=== PATIENT | female | born 1960 | race Hispanic/Latino ===

== ENCOUNTER 2018-10-22 16:58 | Inpatient (IN) | payer OTHER ==
[2018-10-22] MEDS ORDERED: PROMETHAZINE 25 MG/ML VIAL ONE ×2 (17:36→17:51)
[2018-10-22] MEDS ORDERED: ONDANSETRON 4 MG/2 ML VIAL ONE ×2 (17:37→18:54)
[2018-10-22] MEDS ORDERED: NA CHLORIDE 0.9% 1,000 ML ONE ×3 (17:37→20:06)
[2018-10-22] MEDS ORDERED: FENTANYL CITR 100 MCG/2 ML ONE ×2 (17:47→21:03)
[2018-10-22] MEDS ORDERED: PANTOPRAZOLE 40 MG INJ ONE (17:48)
[2018-10-22] MEDS: PANTOPRAZOLE INJ 80 MG in NA CHLORIDE 0.9% 250 ML IV SCH (18:00)
[2018-10-22 18:19] LABS: Absolute Lymphocytes (CBC) 2.4 K/uL (0.7-4.9); Absolute Monocytes 0.5 K/uL (0.1-1.3); Absolute Neutrophil 6.9 K/uL (1.8-8.0); Basophils % 0.7 % (0-1.3); Eosinophils % 0.8 % (0-4.4); Hematocrit 42.7 % (36.0-45.0); Lymphocytes % 24.3 % (15.3-44.8); Monocytes % 5.2 % (3.3-12.3); Protime INR 1.04; RBC Red Blood Cell Count 4.44 M/uL (3.86-4.86)
[2018-10-22 18:45] LABS: ALT/SGPT 224 U/L (12-78); Albumin 3.9 g/dL (3.4-5.0); Alkaline Phosphatase 198 U/L (45-117); BUN Blood Urea Nitrogen 22 mg/dL (7-18); Bicarbonate 28 mmol/L (21-32); Bilirubin Direct 0.9 mg/dL (0-0.2); Bilirubin Total 1.2 mg/dL (0.2-1.0); Glucose Level 158 mg/dL (74-106); NT PRO-BNP 376 pg/mL (<125); Protein, Total 7.2 g/dL (6.4-8.2); Sodium Level 146 mmol/L (136-145); Troponin (Emerg Dept Use Only) < 0.02 ng/mL (0.0-0.045)
[2018-10-22 18:47] LABS: AST/SGOT 500 U/L (15-37)
--- NOTE | 2018-10-22 18:53 | RAD REPORT ---
EXAM DESCRIPTION: RAD - Chest Single View - 10/22/2018 6:29 pm CLINICAL HISTORY: Upper abdominal pain COMPARISON: None. TECHNIQUE: AP portable chest image was obtained 1824 hours . FINDINGS: Lungs are clear. Lung markings are not outside of normal range for a slightly shallow insp iration exam. Heart and vasculature are normal. No measurable pleural effusion and no pneumothorax. N o acute bony abnormality seen. No acute aortic findings suspected. No free air under the diaphragm. IMPRESSION: No acute cardiopulmonary process.
[2018-10-22 19:37] LABS: Lipase > 30000 U/L (73-393)
--- NOTE | 2018-10-22 20:02 | RAD REPORT ---
EXAM DESCRIPTION: CT - Chest Abdomen Pelvis W Cont - 10/22/2018 7:46 pm CLINICAL HISTORY: Chest pain, abdominal pain, diabetes, prior cholecystectomy COMPARISON: Gallbladder ultrasound same date TECHNIQUE: Following dynamic enhancement using 100 milliliters nonionic IV contrast, axial imaging o f the chest, abdomen and pelvis was performed. Biphasic technique was utilized through the abdomen. Oral contrast was administered. All CT scans are performed using dose optimization technique as appropriate and may include automated exposure control or mA/KV adjustment according to patient size. FINDINGS: Lungs are clear of mass and infiltrate. No pleural effusion, pleural thickening or pneumot horax. No significant aortic or pulmonary arterial tree finding. Mediastinal and hilar regions show n o mass or abnormal lymphadenopathy. No chest wall mass or axillary lymphadenopathy. Liver shows a mild diffuse fatty infiltration pattern. No focal liver lesion. No splenomegaly or foca l splenic finding. Gallbladder is absent. Biliary tree is prominent but not outside of normal range f or a post cholecystectomy patient. Duct stones can be occult on CT imaging. Pancreas is abnormal. No solid mass of the pancreas identified. There is moderate severity peripancreatic fluid and inflammato ry stranding. This extends along each anterior pararenal fascia. No pseudocyst or abscess. Symmetric renal function present with no acute renal finding. No adrenal abnormality. Urinary bladder is normal. Uterus and ovaries show no suspicious findings. No gastric abnormality. There is minimal secondary involvement of the duodenum by the pancreatitis ch anges. Remainder of the small bowel and colon show no suspicious findings. No acute or destructive bony process. No significant vascular findings. IMPRESSION: Moderate severity acute pancreatitis. Status post cholecystectomy. Biliary tree is dilated but not outside of normal range for a post julissa cystectomy patient. Duct stones can be occult. Mild fatty infiltration pattern of the liver.
--- NOTE | 2018-10-22 20:04 | RAD REPORT ---
EXAM DESCRIPTION: US - Abdomen Exam Limited - 10/22/2018 7:31 pm CLINICAL HISTORY: Abdominal pain COMPARISON: None. FINDINGS: Gallbladder is absent. No mass or abnormal fluid collection in the gallbladder fossa. Comm on bile duct is 8 mm which is not outside of normal for a post cholecystectomy patient. Doppler evalu ation shows normal blood flow direction and velocity in the portal vein. No portal vein thrombus. No common duct stone seen. IMPRESSION: Gallbladder is absent. No abnormal biliary tree finding.
[2018-10-22 20:17] LABS: Urine Blood NEGATIVE (NEG); Urine Glucose NEGATIVE (NEG); Urine Protein NEGATIVE (NEG)
--- NOTE | 2018-10-22 20:36 | EDPHYS ---
Physician Documentation [facility] Name: Kristina Mendoza Age: 58 yrs Sex: Female : 1960 Arrival Date: 10/22/2018 Time: 17:02 Bed 19 Private MD: None, None ED Physician Aurelio Fernandez HPI: 10/22 17:31 This 58 yrs old Female presents to ER via Ambulatory with complaints of cp Abdominal Pain. 17:31 The patient presents with abdominal pain in the upper abdomen. Onset: The cp symptoms/episode began/occurred today. 17:31 Associated signs and symptoms: Pertinent positives: nausea and vomiting, vomiting cp blood, Pertinent negatives: blood in stools, constipation, diarrhea, fever. The symptoms are described as constant. Historical: - Allergies: 17:16 No Known Allergies; hb - Home Meds: 17:16 metformin 500 mg Oral tab 1 tab 2 times per day [Active]; lisinopril 20 mg Oral tab 1 hb tab once daily [Active]; - PMHx: 17:16 Diabetes - NIDDM; Hypertension; hb - PSHx: 17:43 Cholecystectomy; iw - Immunization history:: Adult Immunizations up to date. - Social history:: Smoking status: Patient/guardian denies using tobacco. - Ebola Screening: : No symptoms or risks identified at this time. ROS: 17:35 Constitutional: Positive for poor PO intake, Negative for body aches, chills, fever. cp 17:35 Eyes: Negative for injury, pain, redness, and discharge. cp 17:35 ENT: Negative for drainage from ear(s), ear pain, sore throat, difficulty swallowing, difficulty handling secretions. 17:35 Cardiovascular: Positive for chest pain, Negative for edema. 17:35 Respiratory: Negative for cough, shortness of breath, wheezing. 17:35 Abdomen/GI: Positive for abdominal pain, nausea and vomiting, hematemesis, Negative for diarrhea, constipation, black/tarry stool, rectal bleeding. 17:35 Back: Negative for pain at rest, pain with movement. 17:35 : Negative for urinary symptoms. 17:35 Skin: Negative for cellulitis, rash. 17:35 Neuro: Negative for altered mental status, headache, weakness. 17:35 All other systems are negative. Exam: 17:38 Head/Face: Normocephalic, atraumatic. cp 17:38 Constitutional: The patient appears alert, awake, non-diaphoretic, well developed, well nourished, in obvious distress, obviously ill, in obvious pain, uncomfortable. 17:38 Eyes: Periorbital structures: appear normal, Pupils: equal, round, and reactive to cp light and accomodation, Conjunctiva: normal, no exudate, no injection, Sclera: no appreciated abnormality, Lids and lashes: appear normal, bilaterally. 17:38 ENT: External ear(s): are unremarkable, Nose: is normal, Mouth: is normal, Posterior pharynx: is normal, airway is patent, no erythema, no exudate. 17:38 Neck: ROM/movement: is normal, is supple, without pain, no range of motions limitations, no meningismus, no nuchal rigidity. 17:38 Chest/axilla: Inspection: normal, Palpation: is normal, no crepitus, no tenderness. 17:38 Cardiovascular: Rate: normal, Rhythm: regular, Edema: is not appreciated, JVD: is not appreciated. 17:38 Respiratory: the patient does not display signs of respiratory distress, Respirations: normal, no use of accessory muscles, no retractions, no splinting, no tachypnea, labored breathing, is not present, Breath sounds: are clear throughout, no decreased breath sounds, no stridor, no wheezing. 17:38 Abdomen/GI: Inspection: distension, is not seen, scar(s), are noted in the , Bowel sounds: active, all quadrants, Palpation: soft, in all quadrants, severe abdominal tenderness, in the epigastric area. 17:38 Back: pain, is absent, ROM is normal. 17:38 Skin: cellulitis, is not appreciated, no rash present. 17:38 Neuro: Orientation: to person, place \T\ time. Mentation: is normal, Cerebellar function: is grossly normal, Motor: moves all fours, strength is normal. 17:41 ECG was reviewed by the Attending Physician. cp Vital Signs: 17:14 BP 113 / 89; Pulse 74; Resp 16; Temp 97.8(A); Pulse Ox 100% on R/A; Pain 10/10; hb 17:18 BP 72 / 39; Pulse 63; Resp 24; Pulse Ox 95% ; ph 17:35 BP 78 / 39; Pulse 62; Resp 16; Pulse Ox 97% on R/A; Pain 10/10; iw 18:12 BP 101 / 51; Pulse 74; Resp 20; Pulse Ox 98% ; ph 19:43 BP 125 / 74; Pulse 89; Resp 17 S; Pulse Ox 100% on R/A; jd3 20:44 BP 146 / 69; Pulse 70; Resp 19 S; Pulse Ox 97% on R/A; jd3 22:08 BP 138 / 57; Pulse 71; Resp 18 S; Pulse Ox 97% on R/A; jd3 MDM: 17:21 Patient medically screened. cp 18:00 Differential diagnosis: diverticulitis, gastritis, GI Bleed, pancreatitis, Peptic Ulcer cp Disease, Perf. Duodenal Ulcer, Perf. Gastric Ulcer, Peritonitis, Pyelonephritis, Ureterolithiasis, urinary tract infection. 20:30 Data reviewed: vital signs, nurses notes, lab test result(s), EKG, radiologic studies, cp CT scan, ultrasound. 20:30 Test interpretation: by ED physician or midlevel provider: ECG, plain radiologic cp studies. Counseling: I had a detailed discussion with the patient and/or guardian regarding: the historical points, exam findings, and any diagnostic results supporting the discharge/admit diagnosis, lab results, radiology results, the need for further work-up and treatment in the hospital. Response to treatment: the patient's symptoms have markedly improved after treatment. Physician consultation: Dionne Henderson MD was called at 20:25, was contacted at 20:25, regarding admission, to the medical/surgical unit. patient's condition. 10/22 17:34 Order name: Basic Metabolic Panel; Complete Time: 19:46 cp 10/22 19:04 Interpretation: Normal except: NA 146; CL 110; GLUC 158; BUN 22; GFR 69. cp 10/22 17:34 Order name: CBC with Diff; Complete Time: 19:04 cp 10/22 17:34 Order name: LFT's; Complete Time: 19:46 cp 02/12 19:05 Interpretation: Normal except: AST 500; ALT 224; ALK 198; BILIT 1.2; BILID 0.9. cp 10/22 17:34 Order name: Magnesium; Complete Time: 19:46 cp 02 17:34 Order name: NT PRO-BNP; Complete Time: 19:46 cp 02 17:34 Order name: PT-INR; Complete Time: 19:04 cp 10/22 17:34 Order name: Troponin (emerg Dept Use Only); Complete Time: 19:46 cp 10/22 17:34 Order name: Lipase; Complete Time: 19:46 cp 10/22 19:05 Interpretation: Abnormal: LIP > 1500. cp 02/ 17:34 Order name: Influenza Screen (a \T\ B); Complete Time: 17:13 cp 10/22 17:34 Order name: Blood Culture Adult (2) cp 10/22 17:34 Order name: Procalcitonin; Complete Time: 19:04 cp 10/22 17:34 Order name: Urine Microscopic Only cp 10/22 17:34 Order name: Lactate; Complete Time: 19:04 cp 10/22 17:54 Order name: Type And Screen; Complete Time: 19:04 cp 10/22 17:34 Order name: XRAY Chest (1 view); Complete Time: 19:04 cp 10/22 18:06 Order name: CT Chest, Abdomen, Pelvis - W/Contrast; Complete Time: 20:05 cp 10/22 18:55 Order name: ABO/RH no charge; Complete Time: 19:04 EDMS 10/22 19:06 Order name: US Abdomen Limited: elevated liver enzymes, elevated lipase; Complete Time: cp 20:22 10/22 19:12 Order name: Urine Dipstick--Ancillary (enter results); Complete Time: 20:22 ms 10/22 19:12 Order name: Urine --Ancillary (enter results); Complete Time: 20:22 ms 10/22 21:01 Order name: CBC with Automated Diff EDMS 10/22 21:01 Order name: CBC with Automated Diff; Complete Time: 17:13 EDMS 10/22 21:01 Order name: Comprehensive Metabolic Panel EDMS 10/22 21:01 Order name: Comprehensive Metabolic Panel; Complete Time: 17:13 EDMS 10/22 21:01 Order name: Lipid Profile EDMS 10/22 21:01 Order name: Lipid Profile; Complete Time: 17:13 EDMS 10/22 21:01 Order name: Protime (+INR) EDMS 10/22 21:01 Order name: Protime (+INR); Complete Time: 17:13 EDMS 10/22 21:01 Order name: PTT, Activated Partial Thromb EDMS 10/22 21:01 Order name: PTT, Activated Partial Thromb; Complete Time: 17:13 EDMS 02 17:34 Order name: EKG; Complete Time: 17:36 cp 02 17:34 Order name: Cardiac monitoring; Complete Time: 18:05 cp 02 17:34 Order name: EKG - Nurse/Tech; Complete Time: 18:05 cp 10/22 17:34 Order name: IV Saline Lock; Complete Time: 18:05 cp 02 17:34 Order name: Labs collected and sent; Complete Time: 18:05 cp 02 17:34 Order name: O2 Per Protocol; Complete Time: 18:05 cp 02 17:34 Order name: O2 Sat Monitoring; Complete Time: 18:05 cp 10/22 17:34 Order name: IV; Complete Time: 17:37 cp 02 17:34 Order name: Urine Dipstick-Ancillary (obtain specimen); Complete Time: 19:06 cp 10/22 17:34 Order name: Urine Test (obtain specimen); Complete Time: 19:05 cp 02 21:01 Order name: CONS Pharmacy Consult EDMS 10/22 21:01 Order name: CONS Physician Consult EDMS 02 21:01 Order name: NPO EDMS 10/22 21:01 Order name: Cholangiogram EDMS 10/22 21:01 Order name: Cholangiogram; Complete Time: 17:13 EDMS EC:41 Rate is 66 beats/min. Rhythm is regular. DC interval is normal. QRS interval is normal. cp QT interval is prolonged at 508 msec. T waves are Inverted in lead aVL. Interpreted by me. Reviewed by me. Administered Medications: 17:35 Drug: Zofran 4 mg Route: IVP; Site: right antecubital; ph 17:51 Follow up: Response: No adverse reaction; Vomiting unchanged ph 17:37 Drug: NS 0.9% 1000 ml Route: IV; Rate: 1 bolus; Site: right antecubital; iw 18:20 Follow up: Response: No adverse reaction; IV Status: Completed infusion ph 17:37 Drug: NS 0.9% 1000 ml Route: IV; Rate: 1 bolus; Site: left antecubital; iw 18:15 Follow up: Response: No adverse reaction; IV Status: Completed infusion ph 17:48 Drug: ProTONIX 40 mg Route: IVP; Site: right antecubital; ph 19:57 Follow up: Response: No adverse reaction ph 17:50 Drug: Phenergan 12.5 mg Route: IVP; Site: right antecubital; ph 19:56 Follow up: Response: No adverse reaction ph 17:50 Drug: fentaNYL (PF) 25 mcg Route: IVP; Site: left antecubital; ph 19:55 Follow up: Response: No adverse reaction ph 19:55 Follow up: Response: No adverse reaction ph 19:07 Drug: Zofran 4 mg Route: IVP; Site: left antecubital; ph 19:55 Follow up: Response: No adverse reaction ph 19:08 Drug: ProTONIX 8 mg/hr Route: IV; Rate: 25 ml/hr; Site: right antecubital; ph 22:14 Follow up: Response: No adverse reaction; IV Status: Infusion continued upon admission jd3 19:58 Drug: NS 0.9% 1000 ml Route: IV; Rate: 100 ml/hr; Site: right antecubital; jd3 22:15 Follow up: Response: No adverse reaction; IV Status: Infusion continued upon admission jd3 21:00 Drug: fentaNYL (PF) 25 mcg Route: IVP; Site: left antecubital; jd3 22:15 Follow up: Response: No adverse reaction jd3 Point of Care Testing: Blood Glucose: 17:34 Blood Glucose: 161 mg/dL; mh5 Ranges: Critical Glucose Levels:Adult <50 mg/dl or >400 mg/dl <40 mg/dl or >180 mg/dl Disposition: 10/22/18 20:35 Hospitalization ordered by Dionne Henderson for Inpatient Admission. Preliminary diagnosis are Acute pancreatitis, Nausea and vomiting. - Bed requested for Telemetry/MedSurg (Inpatient). - Status is Inpatient Admission. jd3 - Condition is Stable. - Problem is new. - Symptoms have improved. UTI on Admission? No Addendum: 10/26/2018 12:16 Co-signature as Attending Physician, Aurelio Fernandez MD. g s Signatures: Dispatcher [employer] Gladys Jones RN RN kl Williams, Irene, RN RN iw Hall, Patricia, RN RN ph Page, Corey, PA PA cp Baxter, Heather, RN RN Aurelio Fernandez MD MD Eduardo Baldwin RN RN jd3 Corrections: (The following items were deleted from the chart) 10/22 21:26 20:35 Hospitalization Ordered by Dionne Henderson MD for Inpatient Admission. Preliminary kl diagnosis is Acute pancreatitis; Nausea and vomiting. Bed requested for Telemetry/MedSurg (Inpatient). Status is Inpatient Admission. Condition is Stable. Problem is new. Symptoms have improved. UTI on Admission? No. cp 22:53 21:26 10/22/2018 20:35 Hospitalization Ordered by Dionne Henderson MD for Inpatient jd3 Admission. Preliminary diagnosis is Acute pancreatitis; Nausea and vomiting. Bed requested for Telemetry/MedSurg (Inpatient). Status is Inpatient Admission. Condition is Stable. Problem is new. Symptoms have improved. UTI on Admission? No. kl
--- NOTE | 2018-10-22 20:36 | ER ---
Nurse's Notes [facility] Name: Kristina Mendoza Age: 58 yrs Sex: Female : 1960 Arrival Date: 10/22/2018 Time: 17:02 Bed 19 Private MD: None, None Diagnosis: Acute pancreatitis;Nausea and vomiting Presentation: 10/22 17:14 Presenting complaint: Upper abdominal pain and N/V today. Not tolerating liquids. hb Actively vomiting in triage. Transition of care: patient was not received from another setting of care. Onset of symptoms was October 22, 2018. Risk Assessment: Do you want to hurt yourself or someone else? Patient reports no desire to harm self or others. Care prior to arrival: None. 17:14 Method Of Arrival: Ambulatory hb 17:14 Acuity: JENELLE 3 hb 17:34 Initial Sepsis Screen: Does the patient meet any 2 criteria? RR > 20 per min. Mean ph Arterial Pressure (MAP) < 65. Yes Does the patient have a suspected source of infection? Yes: Acute abdominal pain. 17:35 Acuity: JENELLE 2 iw 17:35 Initial Sepsis Screen: Does the patient meet any 2 criteria? Systolic BP < 90 mmHg. iw Does the patient have a suspected source of infection? No. Patient's initial sepsis screen is negative. 17:36 Acuity: JENELLE 2 ph Historical: - Allergies: 17:16 No Known Allergies; hb - Home Meds: 17:16 metformin 500 mg Oral tab 1 tab 2 times per day [Active]; lisinopril 20 mg Oral tab 1 hb tab once daily [Active]; - PMHx: 17:16 Diabetes - NIDDM; Hypertension; hb - PSHx: 17:43 Cholecystectomy; iw - Immunization history:: Adult Immunizations up to date. - Social history:: Smoking status: Patient/guardian denies using tobacco. - Ebola Screening: : No symptoms or risks identified at this time. Screenin:45 Abuse screen: Denies threats or abuse. Denies injuries from another. Nutritional ph screening: No deficits noted. Tuberculosis screening: No symptoms or risk factors identified. Fall Risk No fall in past 12 months (0 pts). No secondary diagnosis (0 pts). IV access (20 points). Ambulatory Aid- None/Bed Rest/Nurse Assist (0 pts). Gait- Weak (10 pts.). Mental Status- Oriented to own ability (0 pts). Total Aceves Fall Scale indicates Low Risk Score (25-44 pts). Fall prevention measures have been instituted. Side Rails Up X 2 Placed close to Nursing Station Frequent Obs/Assesments occuring Family Present and informed to notify staff if they need to leave bedside As available Patient and Family Educated on Fall Prevention Program and strategies. Assessment: 17:30 General: Appears in no apparent distress. uncomfortable, obese, Behavior is ph cooperative, anxious, crying, fussy. Pain: Complains of pain in epigastric area Pain radiates to right upper quadrant and left upper quadrant Pain currently is 10 out of 10 on a pain scale. Neuro: Level of Consciousness is awake, alert, obeys commands, Oriented to person, place, time, situation. Cardiovascular: Capillary refill < 3 seconds in bilateral fingers Patient's skin is warm and dry. Respiratory: Airway is patent Respiratory effort is even, Respiratory pattern is tachypnea Breath sounds are clear bilaterally. Denies cough. GI: Abdomen is round non-distended, Bowel sounds present X 4 quads. Abdomen is tender to palpation in epigastric area, right upper quadrant and left upper quadrant. : Reports urinary frequency, Denies burning with urination. Derm: Skin is intact, Skin is jaundiced, pale. Musculoskeletal: Circulation, motion, and sensation intact. Range of motion: intact in all extremities. 17:45 Reassessment: Patient appears in no apparent distress at this time. Pt continues to c/o ph nausea, noted to be actively vomiting, ERP notified, see MAR. 18:30 Reassessment: Patient appears in no apparent distress at this time. Patient and/or ph family updated on plan of care and expected duration. Pain level reassessed. Pt resting quietly w/ eyes closed, reports that pain has improved to 7/10 and continues to c/o nausea, small amount of vomitus noted in emesis bag w/ possible blood noted. 19:15 Reassessment: Patient appears in no apparent distress at this time. Patient and/or jd3 family updated on plan of care and expected duration. Pain level reassessed. 20:15 Reassessment: Patient appears in no apparent distress at this time. Patient and/or jd3 family updated on plan of care and expected duration. Pain level reassessed. 20:43 Reassessment: Patient appears in no apparent distress at this time. No changes from jd3 previously documented assessment. Patient and/or family updated on plan of care and expected duration. Pain level reassessed. 22:07 Reassessment: Patient appears in no apparent distress at this time. Patient and/or jd3 family updated on plan of care and expected duration. Pain level reassessed. Patient is alert, oriented x 3, equal unlabored respirations, skin warm/dry/pink. 22:52 Reassessment: Patient appears in no apparent distress at this time. No changes from jd3 previously documented assessment. Patient and/or family updated on plan of care and expected duration. Pain level reassessed. Patient is alert, oriented x 3, equal unlabored respirations, skin warm/dry/pink. Vital Signs: 17:14 BP 113 / 89; Pulse 74; Resp 16; Temp 97.8(A); Pulse Ox 100% on R/A; Pain 10/10; hb 17:18 BP 72 / 39; Pulse 63; Resp 24; Pulse Ox 95% ; ph 17:35 BP 78 / 39; Pulse 62; Resp 16; Pulse Ox 97% on R/A; Pain 10/10; iw 18:12 BP 101 / 51; Pulse 74; Resp 20; Pulse Ox 98% ; ph 19:43 BP 125 / 74; Pulse 89; Resp 17 S; Pulse Ox 100% on R/A; jd3 20:44 BP 146 / 69; Pulse 70; Resp 19 S; Pulse Ox 97% on R/A; jd3 22:08 BP 138 / 57; Pulse 71; Resp 18 S; Pulse Ox 97% on R/A; jd3 ED Course: 17:02 Patient arrived in ED. sb2 17:02 None, None is Private Physician. sb2 17:15 Triage completed. hb 17:15 Arm band placed on. hb 17:19 Leona Perkins, LUIS is Primary Nurse. ph 17:21 Vickey Graham PA is PHCP. cp 17:21 Aurelio Fernandez MD is Attending Physician. cp 17:30 Inserted saline lock: 18 gauge in left antecubital area, using aseptic technique. Blood iw collected. 17:35 Inserted saline lock: 18 gauge in right antecubital area, using aseptic technique. iw 17:47 Patient has correct armband on for positive identification. Placed in gown. Bed in low ph position. Call light in reach. Side rails up X2. pharmacy associate on. Pulse ox on. NIBP on. 17:55 EKG done, by body technician. reviewed by Vickey SOL. sm3 18:09 Radiology exam delayed due to lab results not completed at this time. (BUN/Creatinine). vr 18:31 XRAY Chest (1 view) In Process Unspecified. EDMS 18:33 Radiology exam delayed due to lab results not completed at this time. (BUN/Creatinine). vr 19:[address] via stretcher. vm2 19:30 US Abdomen Limited: elevated liver enzymes, elevated lipase In Process Unspecified. EDMS 19:45 CT completed. Patient tolerated procedure well. Patient moved to CT via stretcher. wi Patient moved back from CT. 19:47 CT Chest, Abdomen, Pelvis - W/Contrast In Process Unspecified. EDMS 20:35 Dionne Henderson MD is Hospitalizing Provider. cp 22:08 No provider procedures requiring assistance completed. Patient admitted, IV remains in jd3 place. Administered Medications: 17:35 Drug: Zofran 4 mg Route: IVP; Site: right antecubital; ph 17:51 Follow up: Response: No adverse reaction; Vomiting unchanged ph 17:37 Drug: NS 0.9% 1000 ml Route: IV; Rate: 1 bolus; Site: right antecubital; iw 18:20 Follow up: Response: No adverse reaction; IV Status: Completed infusion ph 17:37 Drug: NS 0.9% 1000 ml Route: IV; Rate: 1 bolus; Site: left antecubital; iw 18:15 Follow up: Response: No adverse reaction; IV Status: Completed infusion ph 17:48 Drug: ProTONIX 40 mg Route: IVP; Site: right antecubital; ph 19:57 Follow up: Response: No adverse reaction ph 17:50 Drug: Phenergan 12.5 mg Route: IVP; Site: right antecubital; ph 19:56 Follow up: Response: No adverse reaction ph 17:50 Drug: fentaNYL (PF) 25 mcg Route: IVP; Site: left antecubital; ph 19:55 Follow up: Response: No adverse reaction ph 19:55 Follow up: Response: No adverse reaction ph 19:07 Drug: Zofran 4 mg Route: IVP; Site: left antecubital; ph 19:55 Follow up: Response: No adverse reaction ph 19:08 Drug: ProTONIX 8 mg/hr Route: IV; Rate: 25 ml/hr; Site: right antecubital; ph 22:14 Follow up: Response: No adverse reaction; IV Status: Infusion continued upon admission jd3 19:58 Drug: NS 0.9% 1000 ml Route: IV; Rate: 100 ml/hr; Site: right antecubital; jd3 22:15 Follow up: Response: No adverse reaction; IV Status: Infusion continued upon admission jd3 21:00 Drug: fentaNYL (PF) 25 mcg Route: IVP; Site: left antecubital; jd3 22:15 Follow up: Response: No adverse reaction jd3 Point of Care Testing: Blood Glucose: 17:34 Blood Glucose: 161 mg/dL; 5 Ranges: Outcome: 20:35 Decision to Hospitalize by Provider. cp 22:42 Admitted to Med/surg accompanied by tech, via stretcher, room 414, with chart, Report jd3 called to Arcenio SMITH 22:42 Condition: stable 22:42 Instructed on the need for admit, Demonstrated understanding of instructions. 22:53 Patient left the ED. jd3 Signatures: Dispatcher [employer] EDKarina Nix, RN Jazmyn Pal Patricia RN RN Vickey Palomino PA PA cp Baxter, Heather, RN RN nina Hercules, Kristina Couch [facility] Jazmyn Jaimes Jonathon, RN RN jAlem Stokes 2 Adriane Skelton 3 Corrections: (The following items were deleted from the chart) 21:24 20:44 Pulse 70bpm; Resp 19bpm; Spontaneous; Pulse Ox 97% RA; jd3 jd3
[2018-10-22] MEDS ORDERED: ACETAMINOPHEN 500 MG TAB PO PRN (20:55)
[2018-10-22] MEDS: NA CHLORIDE 0.9% 1,000 ML IV SCH (21:00)
--- NOTE | 2018-10-22 21:41 | EKG ---
Test Date: 2018-10-22 Test Time: 17:30:05 Resident Physician: RAHEEL MEASUREMENT RESULTS: Intervals: Rate: 66 OH: 138 QRSD: 82 QT: 508 QTc: 532 Olpe: P: 41 OH: 138 QRS: 77 T: 93 INTERPRETIVE STATEMENTS: Normal sinus rhythm Prolonged QT Abnormal ECG No previous ECG available for comparison Electronically Signed On 10-22-18 21:41:03 RES COUNSELOR by Salomón Chu
[2018-10-23] MEDS: ONDANSETRON 4 MG/2 ML VIAL IV PRN ×4 (00:01→14:03)
[2018-10-23] MEDS: MORPHINE 4 MG/ML SYR IV PRN ×5 (00:01→17:15)
[2018-10-23 04:38] LABS: Protime INR 1.19
[2018-10-23] MEDS: NA CHLORIDE 0.9% 1,000 ML IV SCH ×3 (04:39→16:41)
[2018-10-23] MEDS: PANTOPRAZOLE INJ 80 MG in NA CHLORIDE 0.9% 250 ML IV SCH ×2 (04:39→14:03)
[2018-10-23 04:40] LABS: Absolute Lymphocytes (CBC) 0.4 K/uL (0.7-4.9); Absolute Monocytes 0.6 K/uL (0.1-1.3); Absolute Neutrophil 13.7 K/uL (1.8-8.0); Basophils % 0.1 % (0-1.3); Hematocrit 44.1 % (36.0-45.0); Lymphocytes % 2.9 % (15.3-44.8); MPV 10.2 fL (7.6-11.3); Monocytes % 3.8 % (3.3-12.3); RBC Red Blood Cell Count 4.57 M/uL (3.86-4.86)
[2018-10-23 05:04] LABS: Albumin 3.3 g/dL (3.4-5.0); Bilirubin Total 2.8 mg/dL (0.2-1.0); Potassium 3.2 mmol/L (3.5-5.1); Protein, Total 6.6 g/dL (6.4-8.2)
[2018-10-23 05:26] LABS: Blood Morphology Comment NOT SEEN (NOT SEEN); Platelet Estimate ADEQ
[2018-10-23] MEDS ORDERED: NA CHLORIDE 0.9% 500 ML IV ONE (05:54)
--- NOTE | 2018-10-23 08:42 | P.HP ---
Certification for Inpatient Patient admitted to: Inpatient With expected LOS: >2 Midnights Patient will require the following post-hospital care: Rehabilitation Practitioner: I am a practitioner with admitting privileges, knowledge of patient current condition, hospital course, and medical plan of care. Services: Services provided to patient in accordance with Admission requirements found in Title 42 Section 412.3 of the Code of Federal Regulations Patient History Date of Service: 10/22/18 Reason for admission: acute pancreatitis History of Present Illness: Patient is a 58-year-old female who came into the hospital with abdominal pain. Pain was in the epigastric region and radiated to her back. Patient is Divehi-speaking only. She was having intractable nausea and vomiting. There was concern that she had coffee-ground emesis. Patient has had a cholecystectomy. Patient was admitted to the hospital for further evaluation. Patient will get an MRCP to further evaluate this. Patient has a bandemia as well as elevated bilirubin and elevated pro time. Patient may need to rule out hepatic vein thrombosis. We will evaluate further pending labs. Allergies No Known Allergies Allergy (Unverified 10/22/18 23:03) Home Medications: Lisinopril 20 mg PO DAILY 10/23/18 Metformin HCl [Glucophage*] 500 mg PO BIDWM 10/23/18 - Past Medical/Surgical History -: HTN -: NIDDM -: CHOLECYSTECTOMY - Family History Mother History Unknown: Yes Father History Unknown: Yes - Social History Smoking Status: Current every day smoker Alcohol use: No CD- Drugs: No Caffeine use: Yes Place of Residence: Home Review of Systems 10-point ROS is otherwise unremarkable Physical Examination - Vital Signs Temperature: 98.7 F Blood Pressure: 155/98 Pulse: 78 Respirations: 18 Pulse Ox (%): 98 - Physical Exam General: Alert, In no apparent distress, Oriented x3 HEENT: Atraumatic, Normocephalic, PERRLA, Mucous membr. moist/pink Neck: Supple, 2+ carotid pulse no bruit, JVD not distended, No Thyromegaly, No LAD Respiratory: Clear to auscultation bilaterally, Normal air movement Cardiovascular: No edema, Normal pulses, Regular rate/rhythm, Normal S1 S2, No murmurs Gastrointestinal: Normal bowel sounds, Soft and benign, Non-distended, No ascites, No tenderness, No masses, No rebound, No guarding Musculoskeletal: No clubbing Integumentary: No rashes Neurological: Normal gait, Normal speech, Normal strength at 5/5 x4 extr, Normal tone, Sensation intact, Cranial nerves 3-12 intact, Normal reflexes 2+, Normal affect Lymphatics: No axilla or inguinal lymphadenopathy External genitalia: No edema - Studies Laboratory Data (last 24 hrs) 10/22/18 17:40: PT 12.2, INR 1.04 10/22/18 17:40: WBC 9.9, Hgb 14.0, Hct 42.7, Plt Count 306 10/22/18 17:40: Sodium 146 H, Potassium 4.0, BUN 22 H, Creatinine 0.85, Glucose 158 H, Magnesium 2.0, Total Bilirubin 1.2 H, AST 500 H*, ALT 224 H, Alkaline Phosphatase 198 H, Lipase > 63640 H Assessment & Plan - Problems (Diagnosis) (1) Acute pancreatitis Current Visit: Yes Status: Acute (2) Type 2 diabetes mellitus Current Visit: Yes Status: Acute (3) Bandemia Current Visit: Yes Status: Acute (4) Leukocytosis Current Visit: Yes Status: Acute - Plan Plan: 1. NPO 2. IV hydration 3. Pain control 4. PPI 5. Monitor labs closely 6. may need hemodialysis; awaiting nephrology input 7. Repeat lipase and monitor LFTs 8. GI and DVT prophylaxis Discharge Plan: Home Plan to discharge in: 72 Hours - Advance Directives Does patient have a Living Will: No Does patient have a Durable POA for Healthcare: No - Code Status/Comfort Care Code Status Assessed: Yes Code Status: Full Code Critical Care: No Time Spent Managing PTS Care (In Minutes): 50
[2018-10-23] MEDS: CEFOXITIN/SWI 2gm 2 GM/20 ML SYR IV SCH ×2 (09:43→16:36)
--- NOTE | 2018-10-23 10:42 | RAD REPORT ---
EXAM DESCRIPTION: MRI - Cholangiogram - 10/23/2018 8:53 am CLINICAL HISTORY: ACUTE PANCREATITIS Abdominal pain COMPARISON: Chest Abdomen Pelvis W Cont dated 10/22/2018; Abdomen Exam Limited dated 10/22/2018 FINDINGS: Three-dimensional MRCP was performed using maximum intensity projection reconstruction on the same work station. Mild intrahepatic biliary dilatation is seen. The common bile duct appears dilated to 14 mm as it tra verses the pancreatic head. Smooth tapering of the distal common bile duct is present suggesting the presence of a benign stricture. A stone is not identified the within the duct. Pancreatic duct is mil dly prominent. The gallbladder is surgically absent. Moderate inflammatory changes seen surrounding the pancreas with a small amount or free fluid. IMPRESSION: Common bile duct appears dilated to 14 mm as it traverses the pancreatic head and then t apers distally in a smooth fashion. This raises suspicion for a stricture. No distinct common duct st one is seen. Mild intrahepatic biliary dilatation is present. Moderate peripancreatic inflammatory changes.
[2018-10-23 11:15] LABS: Absolute Lymphocytes (CBC) 0.5 K/uL (0.7-4.9); Absolute Monocytes 0.6 K/uL (0.1-1.3); Absolute Neutrophil 11.4 K/uL (1.8-8.0); Basophils % 0.1 % (0-1.3); Eosinophils % 0.2 % (0-4.4); Hematocrit 45.5 % (36.0-45.0); Lymphocytes % 3.7 % (15.3-44.8); MPV 9.9 fL (7.6-11.3); Monocytes % 4.6 % (3.3-12.3); RBC Red Blood Cell Count 4.75 M/uL (3.86-4.86)
[2018-10-23 11:37] LABS: Albumin 3.1 g/dL (3.4-5.0); Bilirubin Total 3.8 mg/dL (0.2-1.0); Magnesium 1.7 mg/dL (1.8-2.4); Phosphorus 2.7 mg/dL (2.5-4.9); Potassium 3.6 mmol/L (3.5-5.1); Protein, Total 6.4 g/dL (6.4-8.2)
[2018-10-23] MEDS: METOPROLOL TARTRATE 5 MG/5 ML INJ IV PRN ×2 (12:59→17:14)
--- NOTE | 2018-10-23 17:48 | P.SSS ---
Patient History Date of Service: 10/23/18 Reason for admission: acute pancreatitis History of Present Illness: Patient is a 58-year-old female who came into the hospital with abdominal pain. Pain was in the epigastric region and radiated to her back. Patient is Telugu-speaking only. She was having intractable nausea and vomiting. There was concern that she had coffee-ground emesis. Patient has had a cholecystectomy. Patient was admitted to the hospital for further evaluation. Patient will get an MRCP to further evaluate this. Patient has a bandemia as well as elevated bilirubin and elevated pro time. Patient may need to rule out hepatic vein thrombosis. We will evaluate further pending labs. Allergies No Known Allergies Allergy (Unverified 10/22/18 23:03) Home Medications: Lisinopril 20 mg PO DAILY 10/23/18 Metformin HCl [Glucophage*] 500 mg PO BIDWM 10/23/18 - Past Medical/Surgical History -: HTN -: NIDDM -: CHOLECYSTECTOMY - Family History Mother History Unknown: Yes Father History Unknown: Yes - Social History Smoking Status: Current every day smoker Alcohol use: No CD- Drugs: No Caffeine use: Yes Place of Residence: Home Review of Systems 10-point ROS is otherwise unremarkable Physical Examination - Vital Signs Temperature: 100.9 F Blood Pressure: 174/77 Pulse: 88 Respirations: 18 Pulse Ox (%): 93 - Physical Exam General: Alert, In no apparent distress HEENT: Atraumatic, PERRLA, Mucous membr. moist/pink, EOMI, Sclerae nonicteric Neck: Supple, 2+ carotid pulse no bruit, No LAD, Without JVD or thyroid abnormality Respiratory: Clear to auscultation bilaterally, Normal air movement Cardiovascular: Regular rate/rhythm, Normal S1 S2 Gastrointestinal: Normal bowel sounds, Tenderness Musculoskeletal: No tenderness Integumentary: No rashes Neurological: Normal gait, Normal speech, Normal strength at 5/5 x4 extr, Normal tone, Normal affect Lymphatics: No axilla or inguinal lymphadenopathy - Studies Laboratory Data (last 24 hrs) 10/22/18 17:40: PT 12.2, INR 1.04 10/22/18 17:40: WBC 9.9, Hgb 14.0, Hct 42.7, Plt Count 306 10/22/18 17:40: Sodium 146 H, Potassium 4.0, BUN 22 H, Creatinine 0.85, Glucose 158 H, Magnesium 2.0, Total Bilirubin 1.2 H, AST 500 H*, ALT 224 H, Alkaline Phosphatase 198 H, Lipase > 86923 H - Diagnosis (Problem(s)) (1) Common bile duct (CBD) stricture Current Visit: Yes Status: Acute (2) Acute pancreatitis Onset Date: 10/23/18 Current Visit: Yes Status: Acute Qualifiers: Pancreatitis type: biliary Acute pancreatitis complication: no infection or necrosis Qualified Code(s): K85.10 - Biliary acute pancreatitis without necrosis or infection (3) Type 2 diabetes mellitus Onset Date: 10/23/18 Current Visit: Yes Status: Chronic Qualifiers: Diabetes mellitus longterm insulin use: without plastics patternmaker use Diabetes mellitus complication status: without complication Qualified Code(s): E11.9 - Type 2 diabetes mellitus without complications Treatment Summary: Overall during the hospital stay patient remained stable Patient was initially admitted to the hospital for right upper quadrant pain along with nausea vomiting was found to have a lipase of over 30,000 and was admitted for CP or pancreatitis is consistent with abdominal CT. Patient had her gallbladder will go about 40 years ago and this MRCP was done for possibility CBD dilation secondary to polyp versus stricture. MRCP was consistent with CBD dilation of 14 mm with possibility of stricture. At that time GI was consulted GI was not available to do ERCP in this patient was transferred to a tertiary care center for here seeking and treatment of her severe pancreatitis. Patient was accepted to [facility] and was transferred there under stable condition. While here in the hospital patient was kept on IV fluids NPO with pain medication. - Disposition Disposition: ROUTINE DISCHARGE
[2018-10-23] MEDS ORDERED: Ringers Lactate 500 ML IV ONE (18:00)
== END 2018-10-23 19:15 | disposition short-term general hospital (02) | DRG 444 ==
LOC: ER 16:58 → ERHOLD 21:19 → 4TH 22:42
PROVIDERS: ADMIT Hospitalist; ATTEND Family Medicine
DX: K83.1 Obstruction of bile duct (principal); K85.10 Biliary acute pancreatitis without necrosis or infection; E11.9 Type 2 diabetes mellitus without complications; Z79.84 Long term (current) use of oral hypoglycemic drugs; R11.2 Nausea with vomiting, unspecified; Z90.49 Acquired absence of other specified parts of digestive tract; I10 Essential (primary) hypertension; F17.210 Nicotine dependence, cigarettes, uncomplicated; D72.825 Bandemia
CPT/HCPCS: 36415; 71045; 71260; 74177; 74181; 76705; 80048; 80053; 80061; 80076; 81003; 81025; 82962; 83605; 83690; 83735; 83880; 84100; 84145; 84484; 85025; 85610; 85730; 86850; 86900; 86901; 87040; 87804; 93005; 99285; C9113; J0694; J2405; J2550; J3010; J7030; Q9967